=== PATIENT | female | born 1955 | race Caucasian/White ===

== ENCOUNTER 2023-08-10 10:56 | Emergency (ER) | payer OTHER, SELFPAY ==
[2023-08-10 11:07] VITALS: BP 142/69
[2023-08-10 12:49] VITALS: BP 138/71
--- NOTE | 2023-08-10 13:16 | ED.GENMED ---
History of Present Illness
General
Chief Complaint: DVT/Possible Blood Clot
Source: patient
Exam Limitations: none
Time Seen by Provider: 08/10/23 12:34
Nursing documentation reviewed up to this point in time: agreed with
Travel History
Have you had any contact with someone who has COVID-19?: No
Do you have any symptoms of coronavirus? Fever > 100 degrees, chills, cough, shortness of breath, sore throat, loss of taste or smell, muscle aches, or headache?: No
History of Present Illness
History of Present Illness:
68-year-old female presents to the ER for evaluation. Patient started with discomfort behind her left knee last night. She denies any actual injury. She denies any fever or chills. She is able to bear with a cane but does have discomfort. Does
not take anything for pain. She went to urgent care was sent here to rule out DVT. She denies pain or swelling in her calf. No prior history of DVT. She denies any fever or chills. She was concerned that she thought it felt warm to touch.
Past History
Past History
ED Past Medical History: CAD, HTN, Hypercholesterolemia, RI, Psychiatric (bipolar) and Other (Diverticulitis)
ED Past Surgical History: Gynecological (Tubal ligation and left oophorectomy); Negative Cardiac
Social History
Tobacco: Non-smoker
Alcohol: None
Drug: None
Personal: Single
Living: alone
Employment: Other
Family History
Family History: Other (Noncontributory)
Review of Systems
Review of Systems
Allergies reviewed?: Yes
All Other Systems: ROS reviewed and negative except as documented in HPI and ROS
Constitutional: Reports no symptoms; Denies fever, fatigue or chills
Musculoskeletal: Reports other (+ discomfort behind left knee )
Skin: Reports no symptoms
Neurological: Reports no symptoms
Psychiatric: Reports no symptoms
Phy Exam
General Physical Exam
General Presentation: no apparent distress
General age: appears stated age
General Skin: warm and dry
General Habitus: normal
General Mental: alert
General Hydration: appears well hydrated
Neurological Exam
Neurological Exam: alert and oriented x3
Musculoskeletal Exam
Musculoskeletal Exam: other (nml inspection to left lower extremity no swelling or redness to anterior knee no redness or swelling to posterior knee that mildly tender to palpation to posterior knee able to flex and extend the left knee no laxity
strong distal pulses)
Skin Exam
Skin Exam: normal color and warm/dry
Psychiatric Exam
Psychiatric Exam: normal mood/affect
Course
Orders/Labs/Results
Orders:
Orders
08/10/23 11:08
Legs, left US [US Periph Venous LOWER Ext LT] Urgent
Comment:
Reason For Exam: popliteal pain, warmth, no trauma
08/10/23 13:16
Knee, Left 4 or More Views [CR Knee - Left 4 Or More View*] Urgent
Comment:
Reason For Exam: pain
08/10/23 13:50
Acetaminophen [Tylenol] 650 mg PO NOW STA
Vital Signs
Initial and Last Documented VS:
Initial Vital Signs
Temp Pulse Resp BP Pulse Ox
98.8 F 74 18 142/69 98
08/10/23 11:07 08/10/23 11:07 08/10/23 11:07 08/10/23 11:07 08/10/23 11:07
Last Documented Vital Signs
Temp Pulse Resp BP Pulse Ox
98.8 F 72 16 141/87 98
08/10/23 11:07 08/10/23 15:06 08/10/23 15:06 08/10/23 15:06 08/10/23 15:06
MDM/Problems Addressed
Differential Diagnosis Includes:
Not limited to knee sprain strain less likely DVT
MDM/Problems Addressed:
No obvious findings on exam consistent with infection.
neg xray neg US. pt able to bear weight with cane. will d/c w/ ortho follow up.
*Critical Care Note
Total Time (30-74mins, 75-104mins- exclusive of procedures): Not Applicable
ED Attending Note
-
Portions of this chart may have been created with voice recognition software.� Occasional wrong word or��sound alike� substitutions may have occurred due to the inherent limitations of voice recognition software.
Discharge Plan
Departure
Patient Disposition: Home (Routine Discharge)
Date of Disposition: 08/10/23
Time of Disposition: 16:10
Patient with high blood pressure during this ER visit?: Yes
Condition: Fair
Covid-19: Not Applicable
Discharge Problem:
Knee pain
Instructions: Knee Pain (DC), BLOOD PRESSURE
Prescriptions:
No Action
salmon oil-omega-3 fatty acids 1 CAP capsule
2 cap PO DAILY
aspirin 81 MG tablet,delayed release (DR/EC)
81 mg PO DAILY Qty: 30 0RF
rosuvastatin 20 MG tablet
20 mg PO QPM Qty: 30 0RF
lamotrigine 100 MG tablet
200 mg PO HS
metoprolol tartrate 25 MG tablet
50 mg PO DAILY
amoxicillin-pot clavulanate 875-125 mg tablet
1 tab PO Q12H Qty: 14 0RF
Referrals:
Aris Ortiz MD [Active] -
Bekah Preciado NP [Family Provider] -
Activity Restrictions/Additional Instructions:
As discussed ice the affected area for 20 minutes at a time several times a day. Take Tylenol as needed every 4-6 hours for discomfort. Follow-up with orthopedics soon as possible. Please call tomorrow to make an appointment. Use your cane for
ambulation. Return if any worsening of symptoms of increased pain swelling fever chills redness or further concerns
Interventions
Interventions:
*Risk Screen - Suicide Last Done: 08/10/23 12:32
*General Assessment Last Done: 08/10/23 12:32
*Neglect/Abuse Screening Last Done: 08/10/23 12:32
*ED COVID-19 Vaccine History Last Done: 08/10/23 12:21
ED- Cardiac Assessment Last Done: 08/10/23 12:32
ED- Pulmonary Assessment Last Done: 08/10/23 12:32
ED-Peripheral Vascular Assessment Last Done: 08/10/23 12:32
ED-Skin Assessment Last Done: 08/10/23 12:32
[2023-08-10] MEDS: TYLENOL 650 MG PO (13:56)
[2023-08-10 15:06] VITALS: BP 141/87
[2023-08-10 16:17] VITALS: BP 141/79
== END 2023-08-10 16:18 | disposition home or self-care (01) ==
LOC: EMR 10:56
PROVIDERS: EMERGENCY PHYSICIAN Emergency Medicine; FAMILY PHYSICIAN Nurse Practitioner Family
DX: M25.562 Pain in left knee (principal); R60.0 Localized edema; I25.10 Atherosclerotic heart disease of native coronary artery without angina pectoris; I10 Essential (primary) hypertension; E78.00 Pure hypercholesterolemia, unspecified; F31.9 Bipolar disorder, unspecified; K57.92 Diverticulitis of intestine, part unspecified, without perforation or abscess without bleeding; I25.2 Old myocardial infarction; Z88.6 Allergy status to analgesic agent; Z91.048 Other nonmedicinal substance allergy status
CPT/HCPCS: 99284; 73564; 93971

== ENCOUNTER → 2024-02-12 10:49 | Outpatient (REF) | payer OTHER, SELFPAY | LOC: HWWDC 10:49 | PROVIDERS: ATTENDING PHYSICIAN Student in an Organized Health Care Education/Training Program | DX: Z12.31 Encounter for screening mammogram for malignant neoplasm of breast (principal) | CPT/HCPCS: 77063; 77067 ==